=== PATIENT | female | born 1980 | race Caucasian/White ===

== ENCOUNTER 2023-11-15 13:00 | Outpatient (RCR) | payer OTHER, SELFPAY | END 2023-11-16 08:23 | disposition home or self-care (01) | LOC: HO.PT 13:00 | PROVIDERS: PCP Hospitalist; Visit Provider Colon & Rectal Surgery | DX: R15.0 Incomplete defecation (principal) | CPT/HCPCS: 97110; 97112; 97140; 97162 ==